=== PATIENT | male | born 1990 | race Caucasian/White ===

== ENCOUNTER 2018-02-16 11:00 | Emergency (ER) | payer SELFPAY ==
[~2018-02-16] VITALS: Ht 180.3 cm; Wt 80.9 kg
[2018-02-16 11:20] VITALS: BP 135/77
--- NOTE | 2018-02-16 11:35 | NUR ---
BIB S/O. C/O COUGH, SORE THROAT, MELCHOR X 2 DAYS; DENIES N/V/D. SKIN IS PINK/WARM/DRY; AAOX4 WITH EVEN AND STEADY GAIT; LUNGS CLEAR BL; HR EVEN AND REGULAR; PT DENIES ANY FEVER, CP, SOB, OR COUGH AT THIS TIME; PATIENT STATES PAIN OF 9/10 AT THIS TIME; VSS; PATIENT POSITIONED FOR COMFORT; HOB ELEVATED; BEDRAILS UP X2; BED DOWN. ER MD MADE AWARE OF PT STATUS.
--- NOTE | 2018-02-16 12:20 | NUR ---
DR GRAMAJO AT BEDSIDE.
[2018-02-16 12:51] VITALS: BP 135/77
== END 2018-02-16 12:52 | disposition home or self-care (01) ==
LOC: MED 11:00
DX: J06.9 Acute upper respiratory infection, unspecified (principal)
CPT/HCPCS: 99283

== ENCOUNTER 2018-05-23 10:54 | Emergency (ER) | payer SELFPAY ==
[~2018-05-23] VITALS: Ht 177.8 cm; Wt 88.9 kg
[2018-05-23 11:05] VITALS: BP 142/78
--- NOTE | 2018-05-23 11:09 | NUR ---
PT AMBULATED TO ER BED 04
--- NOTE | 2018-05-23 11:12 | NUR ---
PATIENT BIB WITH C/O SORE THROAT X 1 MONTH, PRODUCTIVE COUGH. DENIES SOB, CP, N/V/D. STATED BEEN TAKING OC MEDICATIONS, DIDNOT WORK. PT IS AAOX4 WITH EVEN AND STEADY GAIT; LUNGS CLEAR BL; HR EVEN AND REGULAR; SORE THROAT 10/10; VSS; PATIENT POSITIONED FOR COMFORT; HOB ELEVATED; BEDRAILS UP X2; BED DOWN. ER MD MADE AWARE OF PT STATUS.
--- NOTE | 2018-05-23 11:45 | NUR ---
Patient being evaluated by physician at bedside.
[2018-05-23] MEDS ORDERED: hydrOXYzine HCL 25 MG TAB PO ONE (11:55)
[2018-05-23] MEDS ORDERED: MECLIZINE 25 MG TAB PO ONE (11:55)
[2018-05-23] MEDS ORDERED: ALBUTEROL SULFATE/IPRATROPIU 3 ML SOL IH ONE (11:55)
[2018-05-23] MEDS ORDERED: CLINDAMYCIN 600 MG/4 ML VIAL IM ONE (11:55)
[2018-05-23] MEDS ORDERED: LEVOFLOXACIN 500 MG TAB PO ONE (11:55)
[2018-05-23] MEDS ORDERED: DEXAMETHASONE 10 MG/ML VIAL IM ONE (11:55)
--- NOTE | 2018-05-23 12:25 | NUR ---
MEDICATION GIVEN, INDICATION AND SIDE EFFECTS EXPLAINED, PT VERBALIZED UNDERSTANDING. NO S/E NOTED.
[2018-05-23 13:10] VITALS: BP 137/88
--- NOTE | 2018-05-23 13:10 | NUR ---
Patient discharged with v/s stable. Written and verbal after care instructions given and explained. Patient alert, oriented and verbalized understanding of instructions. Ambulatory with steady gait. All questions addressed prior to discharge. ID band removed. Patient advised to follow up with PMD. Rx of LEVAQUIN 500MG, PROMETHAZINE DM 6.25MG-15MG/5ML AND PREDNISONE 20MG given. Patient educated on indication of medication including possible reaction and side effects. Opportunity to ask questions provided and answered.
== END 2018-05-23 13:10 | disposition home or self-care (01) ==
LOC: MED 10:54
DX: J32.9 Chronic sinusitis, unspecified (principal); H65.91 Unspecified nonsuppurative otitis media, right ear; J02.9 Acute pharyngitis, unspecified
CPT/HCPCS: 94640; 96372; 99284; J1100; J3490; J7620; J8597

== ENCOUNTER 2018-11-27 12:23 | Emergency (ER) | payer OTHER ==
[~2018-11-27] VITALS: Ht 180.3 cm; Wt 77.6 kg
[2018-11-27 12:40] VITALS: BP 141/91
--- NOTE | 2018-11-27 13:09 | NUR ---
PT BIB SELF C/O COUGH SINUS PRESSURE, HEADACHE, THROAT ITCHING, LOWER BACK X 3 DAYS. PT DENIES N/V/D; SKIN IS INTACT, PINK/WARM/DRY; AAOX4, PERRL, WITH EVEN AND STEADY GAIT; LUNGS CLEAR BL, BREATHING UNLABORED; HR EVEN AND REGULAR, BL PERIPHERAL PULSES PRESENT; BS ACTIVE X4, NO TENDERNESS TO PALPATION. PT DENIES ANY FEVER, CP, SOB, OR COUGH AT THIS TIME; PT STATES 5/10 PAIN AT THIS TIME; VSS; PATIENT POSITIONED FOR COMFORT; HOB ELEVATED; BEDRAILS UP X2; BED DOWN.
--- NOTE | 2018-11-27 13:16 | NUR ---
dr norton at bedside
--- NOTE | 2018-11-27 13:33 | NUR ---
xray at bedside
--- NOTE | 2018-11-27 13:55 | NUR ---
Patient discharged with v/s stable. Written and verbal after care instructions given and explained. Patient alert, oriented and verbalized understanding of instructions. Ambulatory with steady gait. All questions addressed prior to discharge. ID band removed. Patient advised to follow up with PMD. Rx of sudafed and naprosyn given. Patient educated on indication of medication including possible reaction and side effects. Opportunity to ask questions provided and answered.
[2018-11-27 14:01] VITALS: BP 132/89
== END 2018-11-27 13:55 | disposition home or self-care (01) ==
LOC: MED 12:23
DX: J06.9 Acute upper respiratory infection, unspecified (principal)
CPT/HCPCS: 71045; 99283; Q0092